=== PATIENT | female | born 1990 | race Caucasian/White ===

== ENCOUNTER 2016-10-31 12:36 | Emergency (ER) | payer OTHER ==
[2016-10-31 12:39] VITALS: BP 134/69; PULSE 106; TEMP 99.3; BMI 33.6
--- NOTE | 2016-10-31 13:01 | PDOC ---
History of Present Illness - General Chief Complaint: Urinary Problem Stated Complaint: POSSIBLE UTI Time Seen by Provider: 10/31/16 12:56 History Source: Patient Exam Limitations: No Limitations - History of Present Illness Initial Comments: 10/31/16 13:50 Onset of pain, burning, and bleeding to urine 3 days. States hematuria onset was this morning. Has had a urinary tract infection in the past and feels the same. Denies nausea vomiting diarrhea or constipation, denies any vaginal drainage Occurred: reports: yesterday Severity: reports: mild Method of Injury: Yes: unknown Past History - Travel Traveled outside of the country in the last 30 days: No Close contact w/someone who was outside of country & ill: No - Past Medical History Allergies/Adverse Reactions: Allergies Allergy/AdvReac Type Severity Reaction Status Date / Time No Known Allergies Allergy Verified 02/27/16 12:54 Home Medications: Ambulatory Orders Cefdinir [Omnicef -] 300 mg PO BID #10 capsule 10/31/16 Phenazopyridine HCl [Pyridium -] 200 mg PO PC #12 tablet 10/31/16 Other medical history: NONE - Immunization History Immunization Up to Date: Yes - Psycho/Social/Smoking Cessation Hx Anxiety: No Suicidal Ideation: No Smoking History: Never smoked Have you smoked in the past 12 months: Yes Number of Cigarettes Smoked Daily: 4 Hx Alcohol Use: No Drug/Substance Use Hx: No Substance Use Type: None Trauma Specific PMHX - Complaint Specific PMHX Back Injury: Yes Neck Injury: No Review of Systems - Review of Systems Able to Perform ROS?: Yes Is the patient limited Welsh proficient: Yes Constitutional: Yes: Symptoms Reported, See HPI, Malaise HEENTM: Yes: See HPI. No: Symptoms Reported Respiratory: Yes: See HPI. No: Symptoms reported : Yes: Symptoms Reported, See HPI, Burning, Dysuria, Frequency, Hematuria Musculoskeletal: No: Symptoms Reported Integumentary: No: Symptoms Reported All Other Systems: Reviewed and Negative *Physical Exam - Vital Signs Last Vital Signs Temp Pulse Resp BP Pulse Ox 99.3 F 106 H 20 134/69 99 10/31/16 12:37 10/31/16 12:37 10/31/16 12:37 10/31/16 12:37 10/31/16 12:37 - Physical Exam General Appearance: Yes: Nourished, Appropriately Dressed, Apparent Distress, Mild Distress HEENT: positive: KIMBERLY, Normal ENT Inspection, TMs Normal, Pharynx Normal Neck: positive: Supple Respiratory/Chest: positive: Lungs Clear, Normal Breath Sounds Gastrointestinal/Abdominal: positive: Normal Bowel Sounds, Tender, Soft ( suprapubic tenderness without rebound or guarding). 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, Fully Oriented, Alert, Normal Mood/ Affect, Normal Response, Motor Strength /5 Progress Note - Progress Note Progress Note: Urinary tract infection, will treat with cefdinir *DC/Admit/Observation/Transfer Diagnosis at time of Disposition: Urinary tract infection Qualifiers: Urinary tract infection type: acute cystitis Hematuria presence: with hematuria Qualified Code(s): N30.01 - Acute cystitis with hematuria - Discharge Dispostion Disposition: HOME Condition at time of disposition: Stable Admit: No - Prescriptions Prescriptions: Cefdinir [Omnicef -] 300 mg PO BID #10 capsule Phenazopyridine HCl [Pyridium -] 200 mg PO PC #12 tablet - Referrals Referrals: Miguel Jewell [Primary Care Provider] - - Patient Instructions Additional Instructions: Rest, drink lots of fluids: Teas, water, soups Avoid contact with others until fevers and symptoms resolved Lots of handwashing and good hygiene Continue [id number] medications for symptomatic relief Tylenol or Motrin for fever and pain Continue all of antibiotics until completed Followup with private physician in one week for repeat urinalysis/reevaluation Return to emergency department for worsened symptoms, fevers, dehydration - Post Discharge Activity Work/School Note: Back to Work
[2016-10-31] MEDS ORDERED: PHENAZOPYRIDINE HCL 100 MG TABLET (FP) ONE ×2 (13:18→13:55)
[2016-10-31 13:26] LABS: URINE APPEARANCE CLOUDY; URINE BILIRUBIN NEGATIVE (NEGATIVE); URINE BLOOD 2+ (NEGATIVE); URINE COLOR RED; URINE GLUCOSE (UA) 1+ (NEGATIVE); URINE KETONE NEGATIVE (NEGATIVE); URINE NITRITE NEGATIVE (NEGATIVE); URINE UROBILINOGEN NEGATIVE mg/dL (0.2-1.0)
[2016-10-31 13:28] LABS: URINE LEUK ESTERASE 3+ (NEGATIVE); URINE PROTEIN 2+ (NEGATIVE)
[2016-10-31] MEDS ORDERED: PHENAZOPYRIDINE HCL 100 MG TABLET (FP) PO ONE (13:49)
[2016-10-31 13:50] LABS: URINE MUCUS MODERATE; URINE RBC 3283 /hpf (0-3); URINE WBC 138 /hpf (3-5); YEAST MODERATE
== END 2016-10-31 14:50 | disposition home or self-care (01) ==
LOC: JERFT 12:36
DX: N30.01 Acute cystitis with hematuria (principal)
CPT/HCPCS: 81003; 81015; 84703; 87086; 87186; 99281-25

== ENCOUNTER 2018-05-23 19:57 | Emergency (ER) | payer OTHER ==
--- NOTE | 2018-05-23 20:03 | PDOC ---
Rapid Medical Evaluation Time Seen by Provider: 05/23/18 20:00 Medical Evaluation: Allergies Allergy/AdvReac Type Severity Reaction Status Date / Time No Known Allergies Allergy Verified 02/27/16 12:54 05/23/18 20:01 I performed a brief in-person evaluation of this patient. Chief complaint: "hardness" in abdomen Pertinent physical exam findings: Epigastric tenderness to deep palpation. I have ordered the following: Abdominal labs. Patient to proceed to ED for further evaluation. Discharge Disposition - Diagnosis Abdominal pain Qualifiers: Abdominal location: upper abdomen, unspecified Qualified Code(s): R10.10 - Upper abdominal pain, unspecified - Referrals - Patient Instructions - Post Discharge Activity
[2018-05-23 20:05] VITALS: BMI 34.4
[2018-05-23 20:27] LABS: BASO % 0.3 % (0-2.0); EOS % 0.5 % (0-4.5); HEMATOCRIT 43.1 % (32.4-45.2); HEMOGLOBIN 14.9 GM/dL (10.7-15.3); LYMPH % 10.6 % (8-40); MCH 29.6 pg (25.7-33.7); MCHC 34.7 g/dl (32.0-36.0); MEAN CELL VOLUME 85.3 fl (80-96); MEAN PLT VOLUME 7.2 fl (7.5-11.1); MONO % 5.2 % (3.8-10.2); NEUT % 83.4 % (42.8-82.8); PLATELET COUNT 402 K/MM3 (134-434); RBC 5.05 M/mm3 (3.60-5.2); RDW 12.4 % (11.6-15.6); WHITE BLOOD COUNT 9.4 K/mm3 (4.0-10.0)
--- NOTE | 2018-05-23 20:39 | PDOC ---
History of Present Illness - General Chief Complaint: Pain Stated Complaint: VOMITING Time Seen by Provider: 05/23/18 20:00 History Source: Patient Exam Limitations: No Limitations - History of Present Illness Initial Comments: 05/23/18 21:17 28 year old female presented to ED for nausea, vomiting, diarrhea, epigastric pain since last night. Pt stated first symptom was vomiting. Pt stated she had 5 episodes of vomiting (food, no blood) and 5 episodes of diarrhea today (loose , watery, no blood). Pt stated she cannot keep down solids or liquids. Pt admitted to subjective fever, chills. Pt admitted to positive sick contacts (3) with similar symptoms. Pt denied travel out of country. Allergies: NKDA Past History - Past Medical History Allergies/Adverse Reactions: Allergies Allergy/AdvReac Type Severity Reaction Status Date / Time No Known Allergies Allergy Verified 02/27/16 12:54 Home Medications: Ambulatory Orders Cefdinir [Omnicef -] 300 mg PO BID #10 capsule 10/31/16 Phenazopyridine HCl [Pyridium -] 200 mg PO PC #12 tablet 10/31/16 Ondansetron [Zofran Odt -] 4 mg SL TID #9 od.tablet 05/23/18 Cancer: No Cardiac Disorders: No CVA: No COPD: No CHF: No DVT: No - Surgical History Cardiac Surgery: No Gastric Stapling: No GI Surgery: No Neurologic Surgery: No - Immunization History Immunization Up to Date: Yes - Suicide/Smoking/Psychosocial Hx Smoking History: Never smoked Have you smoked in the past 12 months: No Number of Cigarettes Smoked Daily: 4 Information on smoking cessation initiated: No Hx Alcohol Use: No Drug/Substance Use Hx: No Substance Use Type: None Review of Systems - Review of Systems Able to Perform ROS?: Yes Comments:: 05/23/18 21:18 General: denied fever, chills, night sweats, generalized weakness. HEENT: denied sore throat, rhinorrhea, ear pain. Heart: denied chest pain, palpitations, syncope, lower extremity swelling, diaphoresis. Respiratory: denied shortness of breath, cough, sputum production, hemoptysis. Abdomen: admitted to abdominal pain, nausea, vomiting, diarrhea. denied constipation, blood in stool. : denied dysuria, increased urinary frequency, hematuria, urinary incontinence , flank pain. Back: denied back pain. Musculoskeletal: denied joint pain, muscle pain, joint swelling. Neurological: denied headache, dizziness, numbness, tingling, weakness. Skin: denied rash, laceration, abrasion. *Physical Exam - Vital Signs Last Vital Signs Temp Pulse Resp BP Pulse Ox 99.1 F 112 H 20 127/79 96 05/23/18 20:02 05/23/18 20:02 05/23/18 20:02 05/23/18 20:02 05/23/18 20:02 - Physical Exam Comments: 05/23/18 21:19 Constitutional: Well-nourished, Well-developed, appearing stated age. HEENT: head is normocephalic, atraumatic. EOMI. PERRLA. dry mucous membranes. Neck: supple. Full ROM. Heart: regular rhythm. no murmurs, rubs or gallops. Lungs: clear to auscultation bilaterally. no crackles, rhonchi or wheezing. no stridor. Abdomen: soft, nontender. normal bowel sounds. no rebound, guarding, masses. Extremities: Peripheral pulses intact. No lower extremity edema. Neurological: CN 2-12 grossly intact. Moves all four extremities. Psych: awake, alert, oriented x3. Follows commands. Answers questions appropriately. Moderate Sedation - Procedure Monitoring Vital Signs: Procedure Monitoring Vital Signs Temperature 99.1 F 05/23/18 20:02 Pulse Rate 112 H 05/23/18 20:02 Respiratory Rate 20 05/23/18 20:02 Blood Pressure 127/79 05/23/18 20:02 O2 Sat by Pulse Oximetry (%) 96 05/23/18 20:02 ED Treatment Course - LABORATORY CBC & Chemistry Diagram: 05/23/18 20:08 05/23/18 20:08 - ADDITIONAL ORDERS Additional order review: 05/23/18 20:08 RBC 5.05 MCV 85.3 MCHC 34.7 RDW 12.4 MPV 7.2 L Neutrophils % 83.4 H Lymphocytes % 10.6 Monocytes % 5.2 Eosinophils % 0.5 Basophils % 0.3 Medical Decision Making - Medical Decision Making 05/23/18 21:19 28 year old female with above PMH presented to ED for nausea, vomiting, diarrhea , subjective fever, chills, epigastric pain. non toxic appearing. Initial Vital Signs Temp Pulse Resp BP Pulse Ox y 99.1 F y 112 H 20 127/79 96 05/23/18 20:02 05/23/18 20:02 05/23/18 20:02 05/23/18 20:02 05/23/18 20:02 Afebrile. Tachycardia. No tachypnea. No hypotension. No hypoxia on room air. o Labs ordered: CBC, CMP, serum test, lipase g Medications ordered: zofran, normal saline bolus c Imaging ordered: none 05/23/18 21:45 CBC WBC 9.4 K/mm3 (4.0-10.0) 05/23/18 20:08 RBC 5.05 M/mm3 (3.60-5.2) 05/23/18 20:08 Hgb 14.9 GM/dL (10.7-15.3) 05/23/18 20:08 Hct 43.1 % (32.4-45.2) 05/23/18 20:08 MCV 85.3 fl (80-96) 05/23/18 20:08 MCH 29.6 pg (25.7-33.7) 05/23/18 20:08 MCHC 34.7 g/dl (32.0-36.0) 05/23/18 20:08 RDW 12.4 % (11.6-15.6) 05/23/18 20:08 Plt Count 402 K/MM3 (134-434) 05/23/18 20:08 MPV 7.2 fl (7.5-11.1) L 05/23/18 20:08 Absolute Neuts (auto) 7.8 K/mm3 (1.5-8.0) 05/23/18 20:08 Neutrophils % 83.4 % (42.8-82.8) H 05/23/18 20:08 Lymphocytes % 10.6 % (8-40) 05/23/18 20:08 Monocytes % 5.2 % (3.8-10.2) 05/23/18 20:08 Eosinophils % 0.5 % (0-4.5) 05/23/18 20:08 Basophils % 0.3 % (0-2.0) 05/23/18 20:08 Nucleated RBC % 0 % (0-0) 05/23/18 20:08 No leukocytosis. No anemia. CMP Sodium 138 mmol/L (136-145) 05/23/18 20:08 Potassium 3.8 mmol/L (3.5-5.1) 05/23/18 20:08 Chloride 107 mmol/L (98-107) 05/23/18 20:08 Carbon Dioxide 24 mmol/L (21-32) 05/23/18 20:08 Anion Gap 7 MMOL/L (8-16) L 05/23/18 20:08 BUN 15 mg/dL (7-18) 05/23/18 20:08 Creatinine 0.7 mg/dL (0.55-1.3) 05/23/18 20:08 Creat Clearance w eGFR > 60 (>60) 05/23/18 20:08 Random Glucose 96 mg/dL (74-106) 05/23/18 20:08 Calcium 8.7 mg/dL (8.5-10.1) 05/23/18 20:08 Total Bilirubin 0.4 mg/dL (0.2-1) 05/23/18 20:08 AST 18 U/L (15-37) 05/23/18 20:08 ALT 21 U/L (13-61) 05/23/18 20:08 Alkaline Phosphatase 82 U/L (45-117) 05/23/18 20:08 Total Protein 8.0 g/dl (6.4-8.2) 05/23/18 20:08 Albumin 3.5 g/dl (3.4-5.0) 05/23/18 20:08 Lipase 218 U/L (73-393) 05/23/18 20:08 Serum , Qual Negative 05/23/18 21:26 No electrolyte abnormality. No ONDINA. No transaminitis. Normal lipase. Negative serum testing. 05/23/18 22:09 Pt reported improved nausea. Pt given PO juice challenge. 05/23/18 22:46 Vital Signs Temperature y 98.5 F 05/23/18 23:10 Pulse Rate y 88 05/23/18 23:10 Respiratory Rate 19 05/23/18 23:10 Blood Pressure 126/78 05/23/18 23:10 O2 Sat by Pulse Oximetry (%) 100 05/23/18 23:10 Afebrile. Tachycardia resolved. No tachypnea. No hypotension. No hypoxia on room air. Pt tolerated juice challenge. Pt was given sandwich and tolerated well. Pt reported she would like to go home. Pt discharged with zofran prescription. 05/23/18 22:57 Pt reported mild return of nausea. g SL Zofran ordered. *DC/Admit/Observation/Transfer Diagnosis at time of Disposition: Abdominal pain Qualifiers: Abdominal location: upper abdomen, unspecified Qualified Code(s): R10.10 - Upper abdominal pain, unspecified - Discharge Dispostion Disposition: HOME Condition at time of disposition: Improved Decision to Admit order: No - Prescriptions Prescriptions: Ondansetron [Zofran Odt -] 4 mg SL TID #9 od.tablet - Referrals Referrals: Miguel Jewell [Primary Care Provider] - - Patient Instructions Printed Discharge Instructions: DI for Viral Gastroenteritis -- Adult, DI for Vomiting -- Adult Additional Instructions: You were seen today for nausea, vomiting, diarrhea, abdominal pain. Your lab work was normal. I have sent a prescription to your pharmacy for an anti-nausea medicine. Take as advised on label as needed. Follow up with your primary care doctor in 2-3 days. Your care is not complete until you follow up. Return to the Emergency Department for worsening of symptoms, increasing pain, fever>103F, fever>5 days, vomiting blood, blood in stool or any other new, worsening or concerning symptoms. - Post Discharge Activity Forms/Work/School Notes: Back to Work
[2018-05-23 20:48] LABS: ALBUMIN 3.5 g/dl (3.4-5.0); ALK PHOS 82 U/L (45-117); ANION GAP 7 MMOL/L (8-16); BILIRUBIN,TOTAL 0.4 mg/dL (0.2-1); BLOOD UREA NITROGEN 15 mg/dL (7-18); CALCIUM 8.7 mg/dL (8.5-10.1); CHLORIDE 107 mmol/L (98-107); CO2 24 mmol/L (21-32); CREATININE 0.7 mg/dL (0.55-1.3); GLUCOSE,RANDOM 96 mg/dL (74-106); LIPASE 218 U/L (73-393); POTASSIUM 3.8 mmol/L (3.5-5.1); SGOT/AST 18 U/L (15-37); SGPT/ALT 21 U/L (13-61); SODIUM 138 mmol/L (136-145)
[2018-05-23] MEDS ORDERED: ONDANSETRON *ODT* 4 MG TABLET SL ONE ×2 (21:16→22:57)
[2018-05-23] MEDS ORDERED: ONDANSETRON 4 MG/2 ML VIAL IVPUSH ONE (21:21)
[2018-05-23] MEDS ORDERED: SODIUM CHLORIDE 1,000 ML IV STA (21:22)
[2018-05-23] MEDS ORDERED: ONDANSETRON 4 MG/2 ML VIAL ONE (21:29)
--- NOTE | 2018-05-23 22:14 | PDOC ---
Attending Attestation - Resident Resident Name: Brigitte Lucia - ED Attending Attestation I have performed the following: I have examined & evaluated the patient, The case was reviewed & discussed with the resident, I agree w/resident's findings & plan, Exceptions are as noted - Medical Decision Making 05/23/18 22:09 A portion of this note was documented by scribe services under my direction. I have reviewed the details of the note, within reason, and agree with the documentation with the following case summary and management plan written by me. Patient treated in the ED. Nursing notes are reviewed and incorporated into the medical decision-making. Vital signs reviewed. Peripheral IV access obtained by the nurse, laboratory studies are drawn and sent, reviewed and interpreted by myself. Vital Signs Temp Pulse Resp BP Pulse Ox 99.1 F 112 H 20 127/79 96 05/23/18 20:02 05/23/18 20:02 05/23/18 20:02 05/23/18 20:02 05/23/18 20:02 28-year-old female with no past medical history presents with nausea, vomiting, diarrhea and upper abdominal pain. Patient reported that the symptoms started yesterday. She reports sick contacts. She reported decreased appetite but no fevers. Labs reviewed. I suspect patient has gastritis. IV fluids a symptomatically care. Once patient reports from better, supportive care follow with PMD. <Nimesh Puri - Last Filed: 05/23/18 22:09> - HPI HPI: The patient is a year old female, with no significant PMH, who presents to the emergency department today complaining of nausea, vomit, diarrhea, and epigastric pain for 2 days. Patient notes that she began to experience symptoms last night. She reports 5 episodes of NBNB vomit (food) and 5 episodes of loose, watery stool. Patient reports that she cannot keep food or liquids down. She complains of associated epigastric pain, as well as a subjective fever and chills. Patient does confirm a sick contact at home, but denies any raw fish/ meat consumption or recent travel out of the country. The patient denies chest pain, shortness of breath, headache and dizziness. Denies fever, chills, nausea, vomit, diarrhea and constipation. Denies dysuria, frequency, urgency and hematuria. Allergies: NKA Past surgical history: None reported Social history: No reported PCP: Dr. Miguel Jewell 05/23/18 22:34 - Physicial Exam PE: GENERAL: Awake, alert, and fully oriented, in no acute distress HEAD: No signs of trauma EYES: PERRLA, EOMI, sclera anicteric, conjunctiva clear ENT: Auricles normal inspection, hearing grossly normal, nares patent. Moist mucosa NECK: Normal ROM, supple, no masses ABDOMEN: Soft, nontender. No guarding, no rebound. No masses EXTREMITIES: Normal range of motion, no edema. No clubbing or cyanosis. No cords, erythema, or tenderness NEUROLOGICAL: Cranial nerves II through XII grossly intact. Normal speech. SKIN: Warm, Dry, normal turgor, no rashes or lesions noted. 05/23/18 22:34 - Medical Decision Making Documentation prepared by ZACARIAS Cummings, acting as medical staff services manager for Nimesh Puri MD. 05/23/18 22:35 <Geraldine Koehler - Last Filed: 05/23/18 22:35>
[2018-05-23] MEDS ORDERED: ONDANSETRON *ODT* 4 MG TABLET ONE (23:22)
[2018-05-23 23:32] VITALS: BP 126/78; PULSE 88; TEMP 98.5
== END 2018-05-23 23:32 | disposition home or self-care (01) ==
LOC: JER 19:57
PROC: 3E033GC Introduction of Other Therapeutic Substance into Peripheral Vein, Percutaneous Approach (ICD-10-PCS; principal; 2018-05-23)
DX: R10.10 Upper abdominal pain, unspecified (principal)
CPT/HCPCS: 36415; 80053; 83690; 84703; 85025; 96374; 99282-25; J7030; Q0162

== ENCOUNTER 2019-01-12 12:13 | Inpatient (IN) | payer OTHER ==
[2019-01-12 08:47] VITALS: BMI 40.2
[2019-01-12] MEDS ORDERED: BUPIVACAINE HCL 0.25% 125 MG/50 ML VIAL ONE (12:20)
[2019-01-12] MEDS ORDERED: ONDANSETRON 4 MG/2 ML VIAL IVPUSH PRN (12:21)
[2019-01-12] MEDS ORDERED: PROMETHAZINE HCL 25 MG/1 ML VIAL IVPUSH PRN (12:21)
[2019-01-12] MEDS ORDERED: oxyCODONE HCL 5 MG TABLET PO PRN (12:21)
[2019-01-12] MEDS ORDERED: LACTATED RINGERS SOLUTION 1,000 ML IV SCH (12:30)
[2019-01-12] MEDS ORDERED: DEXAMETHASONE SOD PHOSPHATE/PF 10 MG/ML SDV ONE (12:41)
[2019-01-12] MEDS ORDERED: BUPIVACAINE HCL/PF 0.5% (5 MG/ML) 30 ML VIAL IJ ONE (12:41)
[2019-01-12] MEDS ORDERED: MIDAZOLAM HCL 2 MG/2 ML SINGLE DOSE VIAL ONE ×2 (12:41→14:47)
[2019-01-12] MEDS ORDERED: ROCURONIUM BROMIDE 50 MG/5 ML SYRINGE ONE (13:02)
[2019-01-12] MEDS ORDERED: PROPOFOL 20 ML ONE (13:02)
[2019-01-12] MEDS ORDERED: LIDOCAINE HCL/PF 2% SDV 5ML VIAL ONE (13:03)
--- NOTE | 2019-01-12 13:11 | HP ---
Admitting History and Physical - Admission Chief Complaint: Morbid obesity - Past Medical History ...LMP: 12/30/18 ...: No - Smoking History Smoking history: Current some day smoker Have you smoked in the past 12 months: Yes Aproximately how many cigarettes per day: 4 If you are a former smoker, when did you quit?: OCCASIONAL SMOKER - Alcohol/Substance Use Hx Alcohol Use: No - Social History ADL: Independent Home Medications - Allergies Allergies/Adverse Reactions: Allergies Allergy/AdvReac Type Severity Reaction Status Date / Time No Known Allergies Allergy Verified 01/12/19 08:38 - Home Medications Home Medications: Ambulatory Orders Docusate Sodium [Colace -] 100 mg PO TID #90 capsule 01/12/19 Famotidine [Pepcid] 20 mg PO BID #60 tablet 01/12/19 Ondansetron [Zofran -] 8 mg PO TID #30 tablet 01/12/19 Oxycodone HCl/Acetaminophen [Percocet 5-325 mg Tablet] 1 - 2 tab PO Q6H #28 tab MDD 4 01/12/19 Family Medical History Family History: Denies Review of Systems - Review of Systems Constitutional: denies: Chills, Fever Neck: reports: No Symptoms Cardiovascular: reports: No Symptoms Respiratory: reports: No Symptoms Gastrointestinal: reports: No Symptoms Neurological: reports: No Symptoms Pain Intensity: 0 Physical Examination Vital Signs: Vital Signs Temperature 98 F 01/12/19 12:42 Pulse Rate 81 01/12/19 12:42 Respiratory Rate 16 01/12/19 12:42 Blood Pressure 130/68 01/12/19 12:42 O2 Sat by Pulse Oximetry (%) Constitutional: Yes: Calm Cardiovascular: Yes: WNL Respiratory: Yes: Regular Gastrointestinal: Yes: Soft, Abdomen, Obese Neurological: Yes: Alert, Oriented Problem List - Problems (1) Morbid obesity due to excess calories Code(s): E66.01 - MORBID (SEVERE) OBESITY DUE TO EXCESS CALORIES (2) BMI 40.0-44.9, adult Code(s): Z68.41 - BODY MASS INDEX (BMI) 40.0-44.9, ADULT Assessment/Plan Laparoscopic possible open vertical sleeve gastrectomy possible liver biopsy possible upper endoscopy
[2019-01-12] MEDS ORDERED: DEXAMETHASONE SOD PHOSPHATE 4 MG/1 ML VIAL ONE (13:33)
[2019-01-12] MEDS ORDERED: ONDANSETRON 4 MG/2 ML VIAL ONE (13:33)
[2019-01-12] MEDS ORDERED: SODIUM CHLORIDE 0.9% P/F 10 ML VIAL IJ ONE (13:33)
[2019-01-12] MEDS ORDERED: ACETAMINOPHEN INJECTION 100 ML IVPB ONE (14:27)
[2019-01-12] MEDS ORDERED: NEOSTIGMINE METHYLSULFATE 0.5 MG/ML - 10 ML MDV ONE (14:34)
[2019-01-12] MEDS ORDERED: GLYCOPYRROLATE 0.2 MG/1 ML VIAL ONE (14:34)
[2019-01-12] MEDS ORDERED: BUPIVACAINE HCL/PF 0.25% (2.5MG/ML) 10 ML VIAL IJ ONE (14:36)
[2019-01-12] MEDS ORDERED: SODIUM CHLORIDE 1,000 ML IV SCH (14:45)
--- NOTE | 2019-01-12 14:52 | OP ---
Operative Note - Note: Operative Date: 01/12/19 Pre-Operative Diagnosis: Morbid obesity Operation: Diagnostic laparoscopy. Laparoscopic vertical sleeve gastrectomy. Laparoscopic wedge liver biopsy Post-Operative Diagnosis: Same as Pre-op (as well as hepatomegaly) Surgeon: Girish Villela Social Media Content Manager: Vinicio Cruz Anesthesia: General Specimens Removed: Greater curvature of stomach. Liver biopsy Estimated Blood Loss (mls): 30 Operative Report Dictated: Yes
[2019-01-12] MEDS ORDERED: FAMOTIDINE 20 MG/50 ML IVPB 20 MG/50 ML MG IVPB ONE (14:56)
[2019-01-12] MEDS ORDERED: HYDROmorphone HCL CARPU-JECT 1 MG/1 ML DISP.SYRIN IVPUSH PRN (15:08)
[2019-01-12] MEDS: METOCLOPRAMIDE HCL INJECTION 10 MG/2 ML VIAL IVPUSH SCH ×2 (15:15→20:32)
[2019-01-12] MEDS ORDERED: PROMETHAZINE HCL 25 MG/1 ML VIAL ONE (15:21)
[2019-01-12 15:29] LABS: HEMOGLOBIN 13.3 GM/dl (10.7-15.3); MCH 28.8 pg (25.7-33.7); MCHC 33.2 g/dl (32.0-36.0); MEAN CELL VOLUME 86.6 fl (80-96); MEAN PLT VOLUME 7.4 fl (7.5-11.1); PLATELET COUNT 466 K/MM3 (134-434); RBC 4.62 M/mm3 (3.60-5.2); RDW 11.3 % (11.6-15.6); WHITE BLOOD COUNT 16.2 K/mm3 (4.0-10.8)
[2019-01-12] MEDS ORDERED: FAMOTIDINE 20 MG PREMIXED IVPB IVPB ONE (15:32)
[2019-01-12 15:43] LABS: ALBUMIN 3.4 g/dl (3.4-5.0); CREATININE 0.6 mg/dl (0.55-1.3); POTASSIUM 4.1 mmol/L (3.5-5.1); TOT PROT 6.6 g/dl (6.4-8.2)
[2019-01-12] MEDS ORDERED: PROMETHAZINE HCL 25 MG/1 ML VIAL IVPUSH ONE (15:43)
[2019-01-12] MEDS: ONDANSETRON 4 MG/2 ML VIAL IVPUSH SCH ×3 (17:43→22:18)
[2019-01-12] MEDS: ACETAMINOPHEN 1000 MG/100 ML VIAL (NON FORMULARY) IVPB SCH ×2 (17:51→20:31)
[2019-01-12] MEDS: HYDROmorphone HCL CARPU-JECT 1 MG/1 ML DISP.SYRIN IVPB PRN ×2 (18:24→23:55)
[2019-01-12] MEDS: FAMOTIDINE 20 MG/50 ML IVPB 20 MG/50 ML MG IVPB SCH (21:22)
[2019-01-12] MEDS: ENOXAPARIN NA (PORCINE) 40 MG/0.4 ML DISP.SYRIN SQ SCH (21:22)
[2019-01-13] MEDS: ACETAMINOPHEN 1000 MG/100 ML VIAL (NON FORMULARY) IVPB SCH ×2 (02:09→08:19)
[2019-01-13] MEDS: METOCLOPRAMIDE HCL INJECTION 10 MG/2 ML VIAL IVPUSH SCH ×2 (02:11→08:18)
[2019-01-13] MEDS: ONDANSETRON 4 MG/2 ML VIAL IVPUSH SCH ×3 (02:11→10:37)
[2019-01-13] MEDS: HYDROmorphone HCL CARPU-JECT 1 MG/1 ML DISP.SYRIN IVPB PRN (05:45)
[2019-01-13 08:12] LABS: ALBUMIN 3.5 g/dl (3.4-5.0); BILIRUBIN,TOTAL 0.7 mg/dl (0.2-1); CALCIUM 8.7 mg/dl (8.5-10); CREATININE 0.6 mg/dl (0.55-1.3); POTASSIUM 4.7 mmol/L (3.5-5.1)
--- NOTE | 2019-01-13 08:22 | PN ---
Progress Note (short form) - Note Progress Note: 29F POD#1 for sleeve gastrectomy under GETA. This am pt. is doing well. VSS. No anesthesia related complications. Pain well controlled. Continue management per primary team.
[2019-01-13 08:23] LABS: HEMATOCRIT 39.7 % (32.4-45.2); HEMOGLOBIN 13.6 GM/dl (10.7-15.3); MCH 29.5 pg (25.7-33.7); MCHC 34.3 g/dl (32.0-36.0); MEAN CELL VOLUME 85.8 fl (80-96); MEAN PLT VOLUME 7.5 fl (7.5-11.1); PLATELET COUNT 419 K/MM3 (134-434); RBC 4.63 M/mm3 (3.60-5.2); RDW 11.6 % (11.6-15.6); WHITE BLOOD COUNT 10.6 K/mm3 (4.0-10.8)
[2019-01-13] MEDS: ENOXAPARIN NA (PORCINE) 40 MG/0.4 ML DISP.SYRIN SQ SCH (09:23)
[2019-01-13] MEDS: FAMOTIDINE 20 MG/50 ML IVPB 20 MG/50 ML MG IVPB SCH (09:23)
--- NOTE | 2019-01-13 09:28 | DS ---
Physical Exam: SUBJECTIVE: Patient seen and examined OBJECTIVE: Vital Signs Temperature 98.7 F 01/13/19 05:59 Pulse Rate 72 01/13/19 05:59 Respiratory Rate 18 01/13/19 05:59 Blood Pressure 136/76 01/13/19 05:59 O2 Sat by Pulse Oximetry (%) 95 01/13/19 08:47 PHYSICAL EXAM GENERAL: The patient is awake, alert, and fully oriented, in no acute distress. HEAD: Normal with no signs of trauma. EYES: PERRL, extraocular movements intact, sclera anicteric, conjunctiva clear. ENT: Ears normal, nares patent, oropharynx clear without exudates, moist mucous membranes. NECK: Trachea midline, full range of motion, supple. LUNGS: Breath sounds equal, clear to auscultation bilaterally, no wheezes, no crackles, no accessory muscle use. HEART: Regular rate and rhythm, S1, S2 without murmur, rub or gallop. ABDOMEN: Soft, mild diffuse tenderness, incisions clean no erythema or discharge , nondistended, normoactive bowel sounds, no guarding, no rebound, no hepatosplenomegaly, no masses. EXTREMITIES: warm, well-perfused, no edema. NEUROLOGICAL: Cranial nerves II through XII grossly intact. Normal speech, gait not observed. PSYCH: Normal mood, normal affect. SKIN: Warm, dry, normal turgor, no rashes or lesions noted. LABS CBC,CMP WBC 10.6 K/mm3 (4.0-10.8) 01/13/19 07:00 RBC 4.63 M/mm3 (3.60-5.2) 01/13/19 07:00 Hgb 13.6 GM/dl (10.7-15.3) 01/13/19 07:00 Hct 39.7 % (32.4-45.2) 01/13/19 07:00 MCV 85.8 fl (80-96) 01/13/19 07:00 MCH 29.5 pg (25.7-33.7) 01/13/19 07:00 MCHC 34.3 g/dl (32.0-36.0) 01/13/19 07:00 RDW 11.6 % (11.6-15.6) 01/13/19 07:00 Plt Count 419 K/MM3 (134-434) 01/13/19 07:00 MPV 7.5 fl (7.5-11.1) 01/13/19 07:00 Sodium 136 mmol/L (136-145) 01/13/19 07:00 Potassium 4.7 mmol/L (3.5-5.1) 01/13/19 07:00 Chloride 105 mmol/L (98-107) 01/13/19 07:00 Carbon Dioxide 26 mmol/L (21-32) 01/13/19 07:00 Anion Gap 5 MMOL/L (8-16) L 01/13/19 07:00 BUN 9.0 mg/dl (7-18) 01/13/19 07:00 Creatinine 0.6 mg/dl (0.55-1.3) 01/13/19 07:00 Est GFR (CKD-EPI)AfAm 144.78 01/13/19 07:00 Est GFR (CKD-EPI)NonAf 124.92 01/13/19 07:00 Random Glucose 125 mg/dl (74-106) H 01/13/19 07:00 Calcium 8.7 mg/dl (8.5-10) 01/13/19 07:00 Total Bilirubin 0.7 mg/dl (0.2-1) 01/13/19 07:00 AST 33 U/L (15-37) 01/13/19 07:00 ALT 47 U/L (13-61) 01/13/19 07:00 Alkaline Phosphatase 96 U/L (45-117) 01/13/19 07:00 Total Protein 7.0 g/dl (6.4-8.2) 01/13/19 07:00 Albumin 3.5 g/dl (3.4-5.0) 01/13/19 07:00 HOSPITAL COURSE: Date of Admission:01/12/19 Date of Discharge: 01/13/19 The patient was admitted to the Med-Surg Unit after elective bariatric surgery. Now, s/p laparoscopic vertical sleeve gastrectomy. The day of surgery, the patient ambulated the hallways with assistance. The patient was monitored with remote tele/continuous pulse ox. Narcotic and non-narcotic pain management control was achieved with oral and IV pain control. Upper GI series was obtained the following morning and no leak, extravastion or gastric outlet obstruction. Started on a Bariatric Stage 1 diet and tolerated well. Nancy-operative IV ABX were administered in addition to GI prophylaxis. DVT prophylaxis was achieved with SCDs and early ambulation. The discharge instructions and an oral pain management plan were reviewed with the patient. All questions answered. Above plan discussed with Dr. Villela and agreed. Minutes to complete discharge: 20 Visit type - Case Type Case Type: Scheduled - Emergency Emergency Visit: No - New patient This patient is new to me today: Yes Date on this admission: 01/13/19 - Critical Care Critical Care patient: No
[2019-01-13] MEDS ORDERED: FLU VACCINE QUAD 60 MCG/0.5 ML (MDV 19-20) IM ONE (10:00)
--- NOTE | 2019-01-13 10:38 | SPEC ---
DATE OF OPERATION: 01/12/[address] OF SURGERY: [place] [address] SURGEON: Girish Villela MD INSTRUCTOR DRAMATIC ARTS: Vinicio Cruz MD PREOPERATIVE DIAGNOSES: 1. Morbid obesity. 2. Body mass index 40.2. POSTOPERATIVE DIAGNOSES: 1. Morbid obesity. 2. Body mass index 40.2. 3. Hepatomegaly. PROCEDURES: 1. Diagnostic laparoscopy. 2. Laparoscopic vertical sleeve gastrectomy. 3. Laparoscopic wedge liver biopsy. DRAINS: None. ANESTHESIA: GET. BOUGIE SIZE: 36-[place]. REASON FOR PROCEDURE: This is a 29-year-old female who presents for weight loss options. After describing the different options, she decided to proceed with a laparoscopic, possible open, vertical sleeve gastrectomy, possible liver biopsy, and upper endoscopy. The patient was seen by the respective subspecialties and cleared for surgery. The risks and benefits of the procedure were explained. These included bleeding, infection, hernia, KS, DVT, PE, injury to surrounding structures including the liver, colon, bowel, spleen, esophagus, vessel injury, nerve injury, weight regain, gastric leak, staple line leak, sleeve leak, obstruction, vitamin deficiency, hair loss and as some of the possible complications. The patient understood and signed informed consent. DESCRIPTION OF PROCEDURE: The patient was placed supine on the operating room table. The patient underwent general endotracheal intubation. The arms were brought out at 90 degrees and secured. A footboard was placed and the legs were secured laterally with padding. The abdomen was prepped and draped in the usual sterile fashion. A timeout was performed. An incision was made in the left upper quadrant and a Veress needle inserted. Pneumoperitoneum was established. Subsequently, the Veress needle was removed and a 5-mm trocar was placed under direct visualization with the laparoscope. The laparoscopic camera was then inserted and inspection of the abdominal cavity was performed. An incision was then made in the supraumbilical area and a 15-mm trocar was placed under direct visualization. A 5-mm trocar was then placed in the right upper quadrant and a 5-mm trocar was placed below the left subcostal margin. A stab wound was made in the subxiphoid area and a Nissa clamp inserted and removed to dilate the tract. A Mitch liver retractor was inserted. The post was secured at the bedside by the nursing staff. The patient was placed in steep reverse Trendelenburg position and the Mitch liver retractor was used to secure the liver towards the anterior abdominal wall. The pylorus was identified and 6 cm proximal to it, the lesser sac was entered using the LigaSure device. All lateral attachments to the greater curvature of the stomach, including the short gastric vessels, were ligated using the LigaSure device toward the gastrosplenic and gastrophrenic ligaments. Once this was done in its entirety, it was confirmed that all tubes within the nasal or oropharyngeal cavity, including a temperature probe were removed by Anesthesia. The bougie was then inserted by Anesthesia. Transection of the stomach was then begun staying adjacent to the bougie but away from the angularis. Transection of the stomach was performed near the portion of the stomach where the lesser sac was entered. Two laparoscopic Endo-LESLEE black kaycee were used at this location. Laparoscopic Endo LESLEE purple staple loads were then used for the remainder of the transection until the greater curvature of the stomach was fully transected. This was done staying close to the bougie. Care was taken to stay away from the angle of His cephalad. The staple line was then inspected. Hemostasis was identified. A leak test was then performed. It was clamped distally to the staple line. Irrigation solution was placed in the left upper quadrant and air was insufflated by Anesthesia into the sleeve. No leaks were identified. No obstruction was identified. This was done through the entirety of the staple line. The stomach was suctioned and the bougie removed fully intact under direct visualization. At this point, the irrigation solution was suctioned and again, hemostasis was noted. A wedge liver biopsy was then performed. The left lobe of the liver was identified. A portion of the edge of the left lobe of the liver was grasped. Using electrocautery, a wedge of the left liver was excised. The specimen was removed and sent off the field. Hemostasis of the wedge liver biopsy site was attained and noted using electrocautery. The 15-mm supraumbilical trocar was then removed and the greater curvature specimen removed from the site using a sponge stick nicolas. A Shay-Pratibha device was then used to close the fascia with a 0 Vicryl suture at the site. Again, hemostasis was noted. The Mitch liver retractor was then removed under direct visualization. Pneumoperitoneum was desufflated. Hemostasis was noted at all incision sites and Marcaine was injected at all incision sites. A 3-0 Vicryl suture was used to close the deep subcutaneous tissue at the 15-mm incision site. All incision sites were closed using 4-0 Biosyn. Sterile dressings were applied. The patient tolerated the procedure well and was transferred to the recovery room in stable condition. Yesi FELICIANO/[id number]
[2019-01-13] MEDS ORDERED: oxyCODONE HCL 5 MG TABLET PO PRN (11:40)
[2019-01-13] MEDS ORDERED: SODIUM CHLORIDE 1,000 ML IV SCH (11:45)
[2019-01-13 13:38] VITALS: BP 128/84; PULSE 73; TEMP 98.6
--- NOTE | 2019-01-16 11:31 | PATH ---
Surgical Pathology Report Patient Name: SUSANNA KELLEY Med. Rec. #: [id number] /Age/Gender: 1990 (Age: 29) / F Account: [id number] Location: [facility] MED-SURG Taken: 01/12/2019 Received: 01/12/2019 Reported: 01/16/2019 Physicians: Girish Villela M.D. Specimen(s) Received A: GREATER CURVATURE STOMACH B: LIVER BIOPSY Clinical History Morbid obesity Final Diagnosis A. GREATER CURVATURE OF STOMACH, LAPAROSCOPIC GASTRIC SLEEVE EXCISION : PORTION OF STOMACH SHOWING MILD CHRONIC MUCOSAL INFLAMMATION. IMMUNOSTAIN IS NEGATIVE FOR H. PYLORI ORGANISMS. B. LIVER, BIOPSY: LIVER SHOWING MILD STEATOSIS (5-10%). TRICHROME STAIN SHOWS NO APPRECIABLE INCREASE IN FIBROSIS. IRON STAIN IS NEGATIVE. Electronically Signed Juyl Mccoy M.D. Gross Description A. Received in formalin, labeled "greater curvature, stomach," is a 16.2 x 3.2 x 1.4 cm. portion of stomach with a stapled margin of resection. The serosa is van-vasques with minimal attached fat. The mucosa is van-pink with normal folds. No mucosal masses are identified. Production Packager sections are submitted in one cassette. B. received in formalin, labeled "liver biopsy" is a 3.8 x 1.5 x 0.9 cm portion of yellow-brown, soft tissue. Production Packager tissue is submitted in one cassette. AE/01/13/2019 ebram/01/13/2019
== END 2019-01-13 13:58 | disposition home or self-care (01) | DRG 621 ==
LOC: FM/S 12:13
PROVIDERS: ADMIT Surgery; ATTEND Surgery
PROC: 0DB64Z3 Excision of Stomach, Percutaneous Endoscopic Approach, Vertical (ICD-10-PCS; principal; 2019-01-12 13:47)
PROC: 0FB24ZX Excision of Left Lobe Liver, Percutaneous Endoscopic Approach, Diagnostic (ICD-10-PCS; 2019-01-12 13:47)
DX: E66.01 Morbid (severe) obesity due to excess calories (principal); Z68.41 Body mass index [BMI] 40.0-44.9, adult; R16.0 Hepatomegaly, not elsewhere classified; Z72.0 Tobacco use
CPT/HCPCS: 36415; 74241-TC-FY; 80053; 84703; 85027; 88305-TC; 88313-TC; 88342-TC; 94760; J0131; J7030; Q2036